=== PATIENT | male | born 1995 | race Caucasian/White ===

== ENCOUNTER 2016-09-10 01:52 | Emergency (ER) | payer BC ==
[2016-09-10] MEDS ORDERED: Ondansetron HCl/PF 4 MG/2 ML Vial ONE (02:34)
[2016-09-10] MEDS ORDERED: Ketorolac Tromethamine 30 MG/ML VIAL ONE (02:34)
[2016-09-10 02:38] LABS: #Basophils 0.1 thou/uL (0.0-0.2); #Eosinphils 0.1 thou/uL (0.0-0.7); #Lymphocytes 1.7 thou/uL (1.20-3.40); #Monocytes 1.1 thou/uL (0.11-0.59); #Neutrophils 15.3 thou/uL (1.40-6.50); %Basophils 0.7 % (0.0-1.0); %Eosinophils 0.8 % (0.0-10.0); %Lymphocytes 9.3 % (28.0-48.0); %Monocytes 6.2 % (0.0-4.0); %Neutrophils 83.1 % (31.0-61.0); Hemoglobin 16.9 g/dL (14.0-18.0); Mean Corpuscular HGB CONC 34.2 g/dL (32.0-36.0); Mean Corpuscular Hemoglobin 31.4 pg (25.0-35.0); Mean Corpuscular Volume 91.7 fl (77.0-87.0); Mean Platelet Volume 9.8 fL (7.4-10.4); Platelet Count 175 thou/uL (130-400); RBC Distribution Width 11.9 % (11.5-14.5); Red Blood Cell (RBC) Count 5.37 mill/uL (4.00-5.20); White Blood Cell (WBC) Count 18.4 thou/uL (4.8-10.8)
[2016-09-10 02:49] LABS: Amylase 71 U/L (25-125); Anion Gap 13 mmol/L (10-20); BUN (Urea Nitrogen) 9 mg/dL (8.9-20.6); Calc. Creatinine Clearance 0 mL/min (70-130); Carbon Dioxide 27 mmol/L (22-29); Chloride 106 mmol/L (98-107); Estimated GFR-MDRD Greater than 90; Glucose 100 mg/dL (70-105); Potassium 4.2 mmol/L (3.5-5.1); Sodium 142 mmol/L (136-145)
[2016-09-10 03:25] LABS: Blood, Urine Negative (Negative); Clarity Clear (Clear); Glucose, Urine (Dipstick) Negative (Negative); Leukocyte Negative (Negative); Nitrite Negative (Negative); Protein, Urine (Dipstick) 30 mg/dL (Neg-Trace); Urobilinogen 0.2 mg/dL (0.2-1.0)
[2016-09-10 03:26] LABS: Bilirubin Negative (Negative); Icto Negative (Negative); Specific Gravity, Urine 1.033 (1.002-1.036)
[2016-09-10 03:28] LABS: Bacteria/HPF Rare-Few HPF (None Seen); RBC/HPF 0-3 HPF (0-3); Squamous Epithelial 0-3 HPF (0-3); WBC/HPF None Seen HPF (0-3)
[2016-09-10] MEDS ORDERED: Cefepime 1 GM VIAL ONE (04:43)
[2016-09-10] MEDS ORDERED: Sodium Chloride 0.9% 0 ML ONE (04:43)
[2016-09-10] MEDS ORDERED: Sodium Chloride 0.9% 1,000 ML BAG ONE (06:53)
[2016-09-10] MEDS ORDERED: Sodium Chloride 0.9% 100 ML BAG ONE (06:53)
--- NOTE | 2016-09-10 14:58 | CT ---
CT ABDOMEN AND PELVIS WITH CONTRAST: CLINICAL HISTORY: Nausea, vomiting, and abdominal pain. COMPARISON: Reference is made to 2009 examination. FINDINGS: There is a normal-caliber appendix with air and contrast. Abnormal fluid of the pelvis is present. There is mild wall prominence of the urinary bladder as well as prominence of the seminal vesicles and heterogeneity of the prostate gland. No evidence of small bowel obstruction. There is no disse minated free air. The solid abdominal viscera is grossly unremarkable. The imaged lung bases are c lear. No acute osseous abnormality. IMPRESSION: 1. Abnormal free fluid of the pelvis. This could be on the basis of a urinary tract infection give n urinary bladder wall prominence, prominence of the seminal vesicles, and heterogeneity of the pros [place]illas gland. Recommend correlation with laboratory values and physical exam. 2. Normal-caliber appendix. 3. Abnormal free fluid of the pelvis may relate to the above-described urinary tract process. Edilia chopra clinically in this regard. POS: MARIAM
== END 2016-09-10 05:33 | disposition home or self-care (01) ==
LOC: MADERS 01:52
DX: R10.33 Periumbilical pain (principal); B34.9 Viral infection, unspecified; F17.210 Nicotine dependence, cigarettes, uncomplicated
CPT/HCPCS: 74177; 80048; 81003; 81015; 82150; 85025; 96361; 96365; 96375; J0692; J1885; J2405; J7050